=== PATIENT | female | born 1985 | race Native Hawaiian/Other Pacific Islander ===

== ENCOUNTER → 2016-10-28 | Emergency (ER) | payer BC ==
[2016-10-28 15:06] VITALS: BP 110/71; TEMP 98.9; O2SAT 100
--- NOTE | 2016-10-28 15:29 | ED.PDOC ---
History of Present Illness - General Chief Complaint: ENT Problem Stated Complaint: EAR PAIN AND CHEST CONGESTION Time Seen by Provider: 10/28/16 15:28 Source: patient - History of Present Illness Allergies/Adverse Reactions: Allergies NO KNOWN ALLERGY Allergy (Verified 10/28/16 15:03) Home Medications: Ambulatory Orders NK [NK] 10/28/16 Past Medical History (General) - Patient Medical History Hx Asthma: No Surgical History: no surgical history - Vaccination History Hx Tetanus, Diphtheria Vaccination: No Hx Influenza Vaccination: No Hx Pneumococcal Vaccination: No Immunizations Up to Date: No - Social History Hx Alcohol Use: Yes - SOCIAL Hx Substance Use: No Family Medical History - Family History Mother Family History: No Known Departure - Departure Disposition: Discharge to Home or Self Care Departure Forms: ED Discharge - Pt. Copy, Patient Portal Self Enrollment Home Medications: Ambulatory Orders NK [NK] 10/28/16
== END | disposition left against medical advice (07) ==
LOC: ER 12:42
DX: H92.09 Otalgia, unspecified ear (principal)